=== PATIENT | female | born 1960 | race American Indian/Alaskan Native ===

== ENCOUNTER 2020-04-24 09:59 | Emergency (ER) | payer OTHER ==
--- NOTE | 2020-04-24 10:42 | XRay Report ---
CHEST 2 VIEWS INDICATION / CLINICAL INFORMATION: Shortness of breath. COMPARISON: 12/25/10. FINDINGS: SUPPORT DEVICES: None. HEART / MEDIASTINUM: The heart size and pulmonary vasculature are normal. LUNGS / PLEURA: Interstitial lung markings are slightly increased diffusely with slight peribronchial thickening centrally. No pneumothorax. ADDITIONAL FINDINGS: No significant additional findings. IMPRESSION: Minimally prominent interstitial lung markings bilaterally may be acute or chronic. Signer Name: Teddy Berger MD Signed: 04/24/2020 10:37 AM Workstation Name: [id number]
[2020-04-24 10:43] LABS: Bilirubin,Urine NEG (Negative); Blood,Urine NEG (Negative); Color,Urine Yellow (Yellow); Protein,Urine <15 mg/dL mg/dL (Negative); RBC,Urine < 1.0 /HPF (0.0-6.0); Urobilinogen,Urine < 2.0 mg/dL (<2.0); WBC,Urine < 1.0 /HPF (0.0-6.0)
[2020-04-24 10:50] LABS: Basophils # (Auto) 0.1 K/mm3 (0.0-0.1); Basophils % (Auto) 1.7 % (0.0-1.8); Eosinophils # (Auto) 0.1 K/mm3 (0.0-0.4); Eosinophils % (Auto) 2.5 % (0.0-4.3); Hemoglobin 13.5 gm/dl (10.1-14.3); Lymphocytes # (Auto) 1.6 K/mm3 (1.2-5.4); Lymphocytes % (Auto) 25.8 % (13.4-35.0); Mean Corpuscular HGB Conc 33 % (30-34); Mean Corpuscular Volume 84 fl (79-97); Monocytes # (Auto) 0.6 K/mm3 (0.0-0.8); Monocytes % (Auto) 10.6 % (0.0-7.3); Platelet Count 203 K/mm3 (140-440); Red Cell Distribution Width 14.9 % (13.2-15.2)
[2020-04-24 11:07] LABS: Alanine Aminotransferase 15 units/L (7-56); Albumin 4.4 g/dL (3.9-5); BUN/Creatinine Ratio 12; Blood Urea Nitrogen 11 mg/dL (7-17); Calcium 9.5 mg/dL (8.4-10.2); Hemolysis Index 2
[2020-04-24] MEDS ORDERED: ONDANSETRON 4 MG/2 ML INJ IV ONE (13:49)
[2020-04-24] MEDS ORDERED: MORPHINE 4 MG/1 ML INJ IV ONE (13:49)
--- NOTE | 2020-04-24 13:54 | Emergency Department Report ---
ED Abdominal Pain HPI - General Chief Complaint: Dyspnea/Respdistress Stated Complaint: STOMACH AND BACK PAIN, SOB Time Seen by Provider: 04/24/20 13:35 Source: patient Mode of arrival: Ambulatory Limitations: No Limitations - History of Present Illness Initial Comments: Ms. Nevarez is a 60 years old pleasant female with history of hypertension. Patient presented to the ER complaining of epigastric pain that started 3 days ago and moved to her right upper quadrant left upper quadrant and bilateral flank. Patient stated that pain is sharp. She stated that it started as indigestion in the beginning. Patient stated that pain does not radiate to the chest actually it radiated down to her suprapubic area. Patient denied any left-sided or right-sided chest pain. She is also complaining of shortness of breath especially when she take a deep breath or if she started talking. Patient denied any fever or chills. No nausea or vomiting or diarrhea. Patient also denied any contact with patient with COVID-19 recently. MD Complaint: abdominal pain, flank pain Location: epigastric, L flank, R flank Radiation: none Migration to: no migration Severity: moderate Severity scale (0 -10): 6 - Related Data Allergies Allergy/AdvReac Type Severity Reaction Status Date / Time Penicillins Allergy Swelling Verified 04/24/20 10:02 ED Review of Systems ROS: Stated complaint: STOMACH AND BACK PAIN, SOB Other details as noted in HPI Comment: All other systems reviewed and negative Constitutional: denies: chills, fever Respiratory: shortness of breath. denies: cough Cardiovascular: denies: chest pain, palpitations Gastrointestinal: abdominal pain. denies: nausea, vomiting, diarrhea, con stipation, hematemesis, melena Musculoskeletal: denies: back pain Neurological: denies: headache, weakness, numbness, paresthesias, confusion ED Past Medical Hx - Past Medical History Previous Medical History?: Yes Hx Hypertension: Yes Additional medical history: high cholesterol - Surgical History Past Surgical History?: No - Social History Smoking Status: Former Smoker Substance Use Type: Prescribed ED Physical Exam - General Limitations: No Limitations General appearance: alert, in no apparent distress - Head Head exam: Present: atraumatic, normocephalic, normal inspection - Eye Eye exam: Present: normal appearance, PERRL - ENT ENT exam: Present: normal exam, normal orophraynx, mucous membranes moist - Neck Neck exam: Present: normal inspection, full ROM. Absent: tenderness, meningismus, lymphadenopathy, thyromegaly - Respiratory Respiratory exam: Present: normal lung sounds bilaterally - Cardiovascular Cardiovascular Exam: Present: regular rate, normal rhythm, normal heart sounds - GI/Abdominal GI/Abdominal exam: Present: soft, normal bowel sounds. Absent: distended, tenderness, guarding, rebound, rigid, organomegaly, mass, bruit, pulsatile mass, hernia - Extremities Exam Extremities exam: Present: normal inspection, full ROM, normal capillary refill. Absent: pedal edema, calf tenderness - Back Exam Back exam: Present: normal inspection, full ROM. Absent: CVA tenderness (R), CVA tenderness (L) - Neurological Exam Neurological exam: Present: alert, oriented X3, CN II-XII intact, normal gait, reflexes normal - Psychiatric Psychiatric exam: Present: normal mood - Skin Skin exam: Present: warm, intact, normal color ED Course Vital Signs 04/24/20 04/24/20 10:03 14:05 Temperature 98.7 F 98.0 F Pulse Rate 76 64 Respiratory 18 16 Rate Blood Pressure 155/97 Blood Pressure 171/96 [Right] O2 Sat by Pulse 99 99 Oximetry ED Medical Decision Making - Lab Data Result diagrams: 04/24/20 10:28 04/24/20 10:28 - EKG Data -: EKG Interpreted by [place] EKG shows normal: sinus rhythm Rate: normal - EKG Data Interpretation: no acute changes - Radiology Data Radiology results: report reviewed - Medical Decision Making Ms. Nevarez is a 60 years old pleasant female with history of hypertension. Patient presented to the ER complaining of epigastric pain that started 3 days ago and moved to her right upper quadrant left upper quadrant and bilateral flank. Patient stated that pain is sharp. She stated that it started as indigestion in the beginning. Patient stated that pain does not radiate to the chest actually it radiated down to her suprapubic area. Patient denied any left-sided or right-sided chest pain. She is also complaining of shortness of breath especially when she take a deep breath or if she started talking. Patient denied any fever or chills. No nausea or vomiting or diarrhea. Patient also denied any contact with patient with COVID-19 recently. EKG is unremarkable. Labs reviewed and is unremarkable including a negative troponin. CTA chest showed no evidence of pulmonary embolism or any other acute pathology. CT abdomen pelvis is unremarkable except for large amount of gas in the colon. Patient advised to follow-up with her primary doctor in the next 2 to 3 days and to return to the ER if she develop any new symptoms. Critical care attestation.: If time is entered above; I have spent that time in minutes in the direct care of this critically ill patient, excluding procedure time. ED Disposition Clinical Impression: Abdominal pain Disposition: DC-01 TO HOME OR SELFCARE Is pt being admited?: No Condition: Stable Instructions: Abdominal Pain (ED) Referrals: [facility]ARE [Other] - 3-5 Days
--- NOTE | 2020-04-24 16:40 | Cat Scan Report ---
CT ABDOMEN AND PELVIS WITH CONTRAST INDICATION / CLINICAL INFORMATION: MAIN. TECHNIQUE: Axial CT images were obtained through the abdomen and pelvis after IV contrast. All CT scans at this location are performed using CT dose reduction for ALARA by means of automated exposure control. COMPARISON: Abdominal series 12/25/2010; abdomen pelvis CT 12/24/2010 FINDINGS: LOWER CHEST: Mild basilar atelectasis. Coronary artery atherosclerotic calcification. HEPATOBILIARY: Multiple scattered hepatic hypodensities measuring up to 1.2 cm likely representing si mple cysts. No significant biliary abnormality PANCREAS: No significant abnormality. SPLEEN: No significant abnormality. ADRENALS: No significant abnormality. GENITOURINARY: No significant abnormality. GASTROINTESTINAL/MESENTERY: Moderate gaseous distention of the colon without evidence of obstruction. Appendix is unremarkable. No free air or free fluid. No bowel inflammation. Tiny hiatal hernia. RETROPERITONEUM: No significant adenopathy. REPRODUCTIVE ORGANS: No significant abnormality. VASCULAR: No significant abnormality. SKELETAL SYSTEM: No significant abnormality. ADDITIONAL FINDINGS: None. IMPRESSION: 1. No acute abdominopelvic abnormality. 2. Moderate gaseous distention of the colon without evidence of obstruction. 3. Small hepatic hypodensities likely representing cysts. 4. Coronary artery atherosclerotic calcification. Signer Name: Teddy Chapman MD Signed: 04/24/2020 4:36 PM Workstation Name: [id number]
--- NOTE | 2020-04-24 16:46 | Cat Scan Report ---
CTA CHEST WITH CONTRAST INDICATION / CLINICAL INFORMATION: MAIN. TECHNIQUE: Axial CT images were obtained through the chest after injection of 100 cc Omnipaque 350 IV contrast. 3 plane MIP and/or 3D reconstructions were produced. All CT scans at this location are performed usin g CT dose reduction for ALARA by means of automated exposure control. COMPARISON: CT abdomen pelvis 04/24/2020 and chest radiograph 04/24/2020 FINDINGS: PULMONARY ARTERIES: No pulmonary emboli. THORACIC AORTA: No significant abnormality. HEART: Coronary artery atherosclerotic calcification. MEDIASTINUM / SOWMYA: Mild haziness in the anterior mediastinum possibly representing remnant thymus. N o adenopathy. PLEURA: No pleural effusion. No pneumothorax. LUNGS: Apical predominant centrilobular emphysema, moderate. Mild bibasilar atelectasis. 3 mm nodule in the left lower lobe axial series 2 image 51. UPPER ABDOMEN: No acute findings. SKELETAL STRUCTURES: No significant osseous abnormality. ADDITIONAL FINDINGS: 1 cm hypoattenuating right thyroid nodule. IMPRESSION: 1. No CT evidence for pulmonary embolism. 2. No acute findings. 3. Apical predominant centrilobular emphysema. 4. 3 mm nodule in the left lower lobe. Fleischner Society guidelines recommend no routine follow-up i n patient's with low risk for pulmonary neoplasm. Patient is considered high risk should be considere d for dedicated chest CT follow-up at 12 months. 5. 1 cm thyroid nodule on the right. Consider further evaluation with ultrasound. Signer Name: Teddy Chapman MD Signed: 04/24/2020 4:42 PM Workstation Name: [id number]
[2020-04-24 17:22] VITALS: BP 118/75
== END 2020-04-24 17:28 | disposition home or self-care (01) ==
LOC: ED 09:59
DX: R10.13 Epigastric pain (principal); E78.00 Pure hypercholesterolemia, unspecified; I10 Essential (primary) hypertension; Z79.899 Other long term (current) drug therapy; Z88.0 Allergy status to penicillin; Z87.891 Personal history of nicotine dependence
CPT/HCPCS: 36415; 71046; 71275; 74177; 80053; 81001; 84484; 85025; 93005; 96374; 96375; 99284; J2270; J2405; Q9967